=== PATIENT | female | born 1960 | race Caucasian/White ===

== ENCOUNTER 2017-07-25 21:09 | Inpatient (IN) | payer OTHER ==
[~2017-07-25] VITALS: Ht 172.7 cm; Wt 61.0 kg
[2017-07-25 21:14] VITALS: BP 127/59; PULSE 140; RESP 18; TEMP 98.1; O2SAT 97
[2017-07-25 21:15] VITALS: RESP 16; O2SAT 96
[2017-07-25] MEDS ORDERED: SODIUM CHLORIDE 0.9% FLUSH 10 ML FLUSH IVF PRN (21:30)
[2017-07-25] MEDS ORDERED: SODIUM CHLORIDE 0.9% FLUSH 10 ML FLUSH IV FLUSH PRN ×3 (21:30→23:00)
--- NOTE | 2017-07-25 21:51 | PD ---
HPI Chief Complaint: Chest Pain Time Seen by Provider: 21:31 Travel History International Travel<30 days: No Contact w/Intl Traveler<30days: No Traveled to known affect area: No History of Present Illness HPI The patient is a 56-year-old female presents to the emergency department for chest pain. This pain started about 1 hour ago while she was laying in bed. The pain is constant, 8/10 on the pain scale, is not radiating, and is described as a "pressure". The patient has also had some shortness of breath, nausea, vomiting, diaphoresis, and dizziness. She took one nitroglycerin when the pain started and reports that the pain got a little better. The patient says that she felt her heart beating very fast, and as the chest pain got worse they called decided to call 911. EMS gave the patient Cardizem in route to the hospital and that brought her heart rate from the 140s into the 80s. When the patient was seen in the room her heart rate was back into the 140s and her chest pain was still present. The patient has a history of atrial fibrillation, brain aneurysm, hypertension, SC, COPD, diabetes, and hyperlipidemia. Modifying Factors: None Associated Signs & Symptoms: Chest pains, shortness of breath, A. fib with RVR Risk Factors: A. fib history History Past Medical History Narrative Medical COPD, hypertension, history of SC, history of stroke on this diabetes mellitus, hyperlipidemia, GERD, atrial fibrillation, brain aneurysm. Past Surgical History Narrative Surgical Umbilical hernia repair 2, appendectomy, brain aneurysm repair Social History Alcohol Use: Yes Tobacco Use: Yes (1 PPD) Allergies-Medications (Allergen,Severity, Reaction): Coded Allergies: GRADY Inhibitors (Verified Allergy, Severe, 07/25/17) Penicillins (Verified Allergy, Severe, 07/25/17) Sulfa (Sulfonamide Antibiotics) (Verified Allergy, Severe, 07/25/17) codeine (Verified Allergy, Severe, 07/25/17) Review of Systems Except as stated in HPI: all other systems reviewed are Neg General / Constitutional: No: Fever, Chills HENT: No: Headaches Cardiovascular: Positive: Chest Pain or Discomfort, Palpitations, Irregular Rhythm Respiratory: Positive: Shortness of Breath, No: Cough Gastrointestinal: Positive: Nausea, Vomiting Genitourinary: No: Urgency Musculoskeletal: No: Edema Skin: No Rash Neurologic: No: Weakness Physical Exam Narrative GENERAL: Well-developed and well-nourished female in mild distress. Awake and oriented 3. SKIN: Warm and dry. HEAD: Normocephalic. EYES: No scleral icterus. No injection or drainage. NECK: Supple, trachea midline. No JVD or lymphadenopathy. CARDIOVASCULAR: Fast and irregularly irregular. Heart rate in the 140s at bedside and irregular. RESPIRATORY: Clear to auscultation bilaterally. No accessory muscle use. GASTROINTESTINAL: Abdomen soft, non-tender, nondistended. MUSCULOSKELETAL: No cyanosis, or edema. Pain not reproducible by palpation on anterior chest wall BACK: Nontender without obvious deformity. No CVA tenderness. NEUROLOGICAL: Awake and alert. Cranial nerves II through XII intact. Motor and sensory grossly within normal limits. Five out of 5 muscle strength in all muscle groups. Normal speech. Data Data Last Documented VS Vital Signs Date Time Temp Pulse Resp B/P (MAP) Pulse Ox O2 Delivery O2 Flow Rate FiO2 07/25/17 22:00 109 87/65 07/25/17 21:14 98.1 18 97 Orders Orders Complete Blood Count With Diff (07/25/17 21:23) Comprehensive Metabolic Panel (07/25/17 21:23) Magnesium (Mg) (07/25/17 21:23) Ckmb (Isoenzyme) Profile (07/25/17 21:23) Troponin I (07/25/17 21:23) Act Partial Throm Time (Ptt) (07/25/17 21:23) Prothrombin Time / Inr (Pt) (07/25/17 21:23) Chest, Single Ap (07/25/17 21:23) Ecg Monitoring (07/25/17 21:23) Iv Access Insert/Monitor (07/25/17 21:23) Oximetry (07/25/17 21:23) Sodium Chloride 0.9% Flush (Ns Flush) (07/25/17 21:30) Diltiazem Inj (Cardizem Inj) (07/25/17 21:30) Sodium Chloride 0.9% Flush (Ns Flush) (07/25/17 21:30) B-Type Natriuretic Peptide (07/25/17 21:32) Sodium Chloride 0.9% Flush (Ns Flush) (07/25/17 21:45) Diltiazem Inj (Cardizem Inj) (07/25/17 22:00) Admit Order (Ed Use Only) (07/25/17 22:51) Labs Laboratory Tests Test 07/25/17 21:35 White Blood Count 11.1 TH/MM3 Red Blood Count 4.24 MIL/MM3 Hemoglobin 12.3 GM/DL Hematocrit 36.2 % Mean Corpuscular Volume 85.4 FL Mean Corpuscular Hemoglobin 29.0 PG Mean Corpuscular Hemoglobin Concent 34.0 % Red Cell Distribution Width 15.1 % Platelet Count 333 TH/MM3 Mean Platelet Volume 7.6 FL Neutrophils (%) (Auto) 51.7 % Lymphocytes (%) (Auto) 38.2 % Monocytes (%) (Auto) 7.0 % Eosinophils (%) (Auto) 2.1 % Basophils (%) (Auto) 1.0 % Neutrophils # (Auto) 5.8 TH/MM3 Lymphocytes # (Auto) 4.2 TH/MM3 Monocytes # (Auto) 0.8 TH/MM3 Eosinophils # (Auto) 0.2 TH/MM3 Basophils # (Auto) 0.1 TH/MM3 CBC Comment DIFF FINAL Differential Comment Prothrombin Time 10.0 SEC Prothromb Time International Ratio 1.0 RATIO Activated Partial Thromboplast Time 24.0 SEC Blood Urea Nitrogen 16 MG/DL Creatinine 0.85 MG/DL Random Glucose 226 MG/DL Total Protein 7.1 GM/DL Albumin 3.8 GM/DL Calcium Level 8.6 MG/DL Magnesium Level 1.7 MG/DL Alkaline Phosphatase 104 U/L Aspartate Amino Transf (AST/SGOT) 28 U/L Alanine Aminotransferase (ALT/SGPT) 23 U/L Total Bilirubin 0.5 MG/DL Sodium Level 135 MEQ/L Potassium Level 3.8 MEQ/L Chloride Level 102 MEQ/L Carbon Dioxide Level 22.4 MEQ/L Anion Gap 11 MEQ/L Estimat Glomerular Filtration Rate 69 ML/MIN Total Creatine Kinase 83 U/L Troponin I LESS THAN 0.02 NG/ML B-Type Natriuretic Peptide 111 PG/ML MDM Medical Decision Making Medical Screen Exam Complete: Yes Emergency Medical Condition: Yes Medical Record Reviewed: Yes Interpretation(s) EKG shows A. fib with RVR at a rate of 140 bpm. No signs of acute ST elevations or depressions. Laboratory Tests Test 07/25/17 21:35 White Blood Count 11.1 TH/MM3 (4.0-11.0) Activated Partial Thromboplast Time 24.0 SEC (24.3-30.1) Random Glucose 226 MG/DL (74-106) Sodium Level 135 MEQ/L (136-145) Estimat Glomerular Filtration Rate 69 ML/MIN (>89) Troponin I LESS THAN 0.02 NG/ML B-Type Natriuretic Peptide 111 PG/ML (0-100) Last 24 hours Impressions Chest X-Ray 07/25/172122 Signed Impressions: Service Date/Time: Tuesday, July 25, 2017 21:30 - CONCLUSION: The lungs are clear. Possible bony injury to the lateral left 7th and 8th ribs. Mauro King MD Differential Diagnosis Dysrhythmias versus ACS versus sepsis versus dehydration versus metabolic issues Narrative Course EKG shows A. fib with RVR, Cardizem given and drip was initiated in the ER with improvement in symptoms. Lab work did not show significant metabolic issues and cardiac enzymes are negative. At this point, my plan would be to admit her for further evaluation and treatment. Patient has history of aneurysms in the brain and had her anticoagulant stopped by her primary care doctor in the past because of those aneurysms. At this point, I will be cautious about anticoagulation. Case has been discussed with Dr. Longoria for admission. Diagnosis Primary Impression: Atrial fibrillation with RVR Admitting Information Admitting Physician Requests: Admit Bertram Morris MD Jul 25, 2017 21:51
[2017-07-25 21:54] LABS: AUTOMATED NEUTROPHIL # 5.8 TH/MM3 (1.8-7.7); BASOPHIL # 0.1 TH/MM3 (0-0.2); EOSINOPHIL # 0.2 TH/MM3 (0-0.4); EOSINOPHIL % 2.1 % (0.0-4.0); HEMATOCRIT 36.2 % (35.0-46.0); HEMOGLOBIN 12.3 GM/DL (11.6-15.3); LYMPH % 38.2 % (9.0-44.0); LYMPHOCYTE # 4.2 TH/MM3 (1.0-4.8); MEAN CELL VOLUME 85.4 FL (80.0-100.0); MEAN PLATELET VOLUME 7.6 FL (7.0-11.0); MONOCYTE # 0.8 TH/MM3 (0-0.9); NEUT % 51.7 % (16.0-70.0); PLATELET COUNT 333 TH/MM3 (150-450); RED BLOOD COUNT 4.24 MIL/MM3 (4.00-5.30); RED CELL DISTRIBUTION WIDTH 15.1 % (11.6-17.2); WHITE BLOOD COUNT 11.1 TH/MM3 (4.0-11.0)
[2017-07-25] MEDS: DILTIAZEM INJ 125 MG in SODIUM CHLORIDE 0.9% INJ 100 ML IV PRN (22:00)
[2017-07-25] MEDS ORDERED: DILTIAZEM HCL 50 MG/10 ML VIAL IV PUSH ONE (22:00)
[2017-07-25 22:06] LABS: ALBUMIN 3.8 GM/DL (3.4-5.0); ALT (GPT) 23 U/L (10-53); AST (GOT) 28 U/L (15-37); BICARBONATE 22.4 MEQ/L (21.0-32.0); BLOOD UREA NITROGEN 16 MG/DL (7-18); CALCIUM 8.6 MG/DL (8.5-10.1); CHLORIDE 102 MEQ/L (98-107); CREATININE 0.85 MG/DL (0.50-1.00); GLOMERULAR FILTRATION RATE 69 ML/MIN (>89); GLUCOSE,RANDOM 226 MG/DL (74-106); MAGNESIUM 1.7 MG/DL (1.5-2.5); SODIUM (NA) 135 MEQ/L (136-145)
--- NOTE | 2017-07-25 22:06 | RADRPT ---
EXAM DATE/TIME: 07/25/2017 21:30 [facility] COMPARISON: No previous studies available for comparison. INDICATIONS : Chest pain and shortness of breath. MEDICAL HISTORY : Emphysema. SURGICAL HISTORY : None. ENCOUNTER: Initial ACUITY: 1 day PAIN SCORE: 4/10 LOCATION: Bilateral chest FINDINGS: A single view of the chest demonstrates the lungs to be symmetrically aerated without evidence of mas s, infiltrate or effusion. No evidence of pneumothorax. The cardiomediastinal contours are unremarka ble. There is mild focal soft tissue about the posterolateral left 7th and 8th rib without discernib le fracture lucency. CONCLUSION: The lungs are clear. Possible bony injury to the lateral left 7th and 8th ribs. Mauro King MD on July 25, 2017 at 22:03 Board Certified Radiologist. This report was verified electronically.
[2017-07-25 22:10] LABS: ALKALINE PHOSPHATASE 104 U/L (45-117); TOTAL BILIRUBIN ADULT 0.5 MG/DL (0.2-1.0); TOTAL PROTEIN 7.1 GM/DL (6.4-8.2); TROPONIN I LESS THAN 0.02 NG/ML (0.02-0.05)
[2017-07-25 22:30] VITALS: BP 108/62; PULSE 96; RESP 18; O2SAT 97
[2017-07-25 23:00] VITALS: BP 99/58; PULSE 109; RESP 18; O2SAT 96
[2017-07-25] MEDS ORDERED: ACETAMINOPHEN 325 MG TAB PO PRN (23:00)
[2017-07-25] MEDS ORDERED: MAGNESIUM HYDROXIDE SUSP 30 ML CUP PO PRN (23:00)
[2017-07-25] MEDS ORDERED: ONDANSETRON HCL 4 MG/2 ML VIAL IVP PRN (23:00)
[2017-07-25] MEDS ORDERED: LACTULOSE SYRUP 20 GM/30 ML CUP PO PRN (23:00)
[2017-07-25] MEDS ORDERED: BISACODYL 10 MG SUPP RECTAL PRN (23:00)
[2017-07-25] MEDS ORDERED: MORPHINE SULFATE 2 MG/ML INJ IV PUSH PRN (23:00)
[2017-07-25] MEDS ORDERED: SENNOSIDES 8.6 MG TAB PO PRN (23:00)
--- NOTE | 2017-07-25 23:01 | HHI.HP ---
HPI [facility] Primary Care Physician Unknown Admission Diagnosis A. fib with RVR Diagnoses: (1) Atrial fibrillation with RVR Diagnosis: Principal (2) Chest pain Diagnosis: Principal (3) Leukocytosis Diagnosis: Principal (4) DM (diabetes mellitus) Diagnosis: Principal (5) Tobacco abuse Diagnosis: Principal Travel History International Travel<30 Days: No Contact w/Intl Traveler <30 Da: No Traveled to Known Affected Are: No History of Present Illness This is a 56-year-old female with a PMH of HTN, CAD, CVA, COPD, DM, Intracranial Aneurysm s/p Coil x2, Stent x1, A. fib and Tobacco Abuse who was brought to the ER by EMS secondary to complaints of chest pain and palpitations starting earlier tonight. States chest pain is substernal, constant, 8-9/10, non-radiating, worse w/ deep breath/palpitations. Pt found to be in A-fib w/ RVR by EMS, HR 140's, s/p Cardizem w/ HR 80's. Reports previous h/o of A. fib however "not taking anything", does not follow w/ Cardiology. On arrival, BP 127/59, HR 140, O2 sat 97% on RA, Afebrile. WBC 11.1. Chemistry unremarkable was of her GFR 69. BS 226. Troponin negative. INR 1.0. CXR with no acute findings, possible bony injury to lateral left seventh and eighth ribs. Denies trauma. S/p additional Cardizem IV in ER, currently on Cardizem gtt. Review of Systems Except as stated in HPI: all other systems reviewed are Neg ROS: 14 point review of systems otherwise negative. Past Family Social History Past Medical History PMH: HTN, CAD, CVA, COPD, DM, Intracranial Aneurysm s/p Coil x2, Stent x1, A. fib and Tobacco Abuse Past Surgical History PAST SURGICAL HISTORY: Umbilical Hernia Repair, Appendectomy, [employer]GAL [employer]IST[employer] Aneurysm Coil x2, Stent x1 Allergies: Coded Allergies: GRADY Inhibitors (Verified Allergy, Severe, 07/25/17) Penicillins (Verified Allergy, Severe, 07/25/17) Sulfa (Sulfonamide Antibiotics) (Verified Allergy, Severe, 07/25/17) codeine (Verified Allergy, Severe, 07/25/17) Family History PAST FAMILY HISTORY: Reviewed. No h/o DM or CAD Social History PAST SOCIAL HISTORY: Positive for alcohol. Smokes 1ppd. Negative for drugs. Physical Exam Vital Signs Vital Signs Date Time Temp Pulse Resp B/P (MAP) Pulse Ox O2 Delivery O2 Flow Rate FiO2 07/25/17 23:00 109 18 99/58 (72) 96 Room Air 07/25/17 22:00 109 87/65 07/25/17 21:15 16 96 Room Air 07/25/17 21:14 98.1 140 18 127/59 (81) 97 Physical Exam PE: GENERAL: Middle-aged female in no acute distress, appears much older than stated age. Daughter at bedside HEENT: PERRLA, EOMI. No scleral icterus or conjunctival pallor. No lid lag or facial droop. CARDIOVASCULAR: Irregularly irregular, in A. fib, HR 120's. No obvious murmurs to auscultation. No chest tenderness to palpation. RESPIRATORY: No obvious rhonchi or wheezing. Clear to auscultation. Breath sounds equal bilaterally. GASTROINTESTINAL: Abdomen soft, non-tender, nondistended. BS normal. MUSCULOSKELETAL: Extremities without clubbing, cyanosis, or edema. No obvious deformities. NEUROLOGICAL: Awake, alert and oriented x4. No focal neurologic deficits. Moving both upper and lower extremities spontaneously. Laboratory Laboratory Tests Test 07/25/17 21:35 White Blood Count 11.1 Red Blood Count 4.24 Hemoglobin 12.3 Hematocrit 36.2 Mean Corpuscular Volume 85.4 Mean Corpuscular Hemoglobin 29.0 Mean Corpuscular Hemoglobin Concent 34.0 Red Cell Distribution Width 15.1 Platelet Count 333 Mean Platelet Volume 7.6 Neutrophils (%) (Auto) 51.7 Lymphocytes (%) (Auto) 38.2 Monocytes (%) (Auto) 7.0 Eosinophils (%) (Auto) 2.1 Basophils (%) (Auto) 1.0 Neutrophils # (Auto) 5.8 Lymphocytes # (Auto) 4.2 Monocytes # (Auto) 0.8 Eosinophils # (Auto) 0.2 Basophils # (Auto) 0.1 CBC Comment DIFF FINAL Differential Comment Prothrombin Time 10.0 Prothromb Time International Ratio 1.0 Activated Partial Thromboplast Time 24.0 Blood Urea Nitrogen 16 Creatinine 0.85 Random Glucose 226 Total Protein 7.1 Albumin 3.8 Calcium Level 8.6 Magnesium Level 1.7 Alkaline Phosphatase 104 Aspartate Amino Transf (AST/SGOT) 28 Alanine Aminotransferase (ALT/SGPT) 23 Total Bilirubin 0.5 Sodium Level 135 Potassium Level 3.8 Chloride Level 102 Carbon Dioxide Level 22.4 Anion Gap 11 Estimat Glomerular Filtration Rate 69 Total Creatine Kinase 83 Troponin I LESS THAN 0.02 B-Type Natriuretic Peptide 111 Result Diagram: 07/25/17213407/25/172134 Caprini VTE Risk Assessment Caprini VTE Risk Assessment: Mod/High Risk (score >= 2) Caprini Risk Assessment Model Point Value = 1 Point Value = 2 Point Value = 3 Point Value = 5 Age 41-60 Minor surgery BMI > 25 kg/m2 Swollen legs Varicose veins or History of unexplained or recurrent spontaneous Oral contraceptives or hormone replacement Sepsis (< 1 month) Serious lung disease, including pneumonia (< 1 month) Abnormal pulmonary function Acute myocardial infarction Congestive heart failure (< 1 month) History of inflammatory bowel disease Medical patient at bed rest Age 61-74 Arthroscopic surgery Major open surgery (> 45 min) Laparoscopic surgery (> 45 min) Malignancy Confined to bed (> 72 hours) Immobilizing plaster cast Central venous access Age >= 75 History of VTE Family history of VTE Factor V Leiden Prothrombin [id number] Lupus anticoagulant Anticardiolipin antibodies Elevated serum homocysteine Heparin-induced thrombocytopenia Other congenital or acquired thrombophilia Stroke (< 1 month) Elective arthroplasty Hip, pelvis, or leg fracture Acute spinal cord injury (< 1 month) Prophylaxis Regimen Total Risk Factor Score Risk Level Prophylaxis Regimen 0-1 Low Early ambulation 2 Moderate Order ONE of the following: *Sequential Compression Device (SCD) *Heparin 5000 units SQ BID 3-4 Higher Order ONE of the following medications: *Heparin 5000 units SQ TID *Enoxaparin/Lovenox 40 mg SQ daily (WT < 150 kg, CrCl > 30 mL/min) *Enoxaparin/Lovenox 30 mg SQ daily (WT < 150 kg, CrCl > 10-29 mL/min) *Enoxaparin/Lovenox 30 mg SQ BID (WT < 150 kg, CrCl > 30 mL/min) AND/OR *Sequential Compression Device (SCD) 5 or more Highest Order ONE of the following medications: *Heparin 5000 units SQ TID (Preferred with Epidurals) *Enoxaparin/Lovenox 40 mg SQ daily (WT < 150 kg, CrCl > 30 mL/min) *Enoxaparin/Lovenox 30 mg SQ daily (WT < 150 kg, CrCl > 10-29 mL/min) *Enoxaparin/Lovenox 30 mg SQ BID (WT < 150 kg, CrCl > 30 mL/min) AND *Sequential Compression Device (SCD) Assessment and Plan Problem List: (1) Atrial fibrillation with RVR ICD Code: I48.91 - Unspecified atrial fibrillation Status: Acute (2) Chest pain ICD Code: R07.9 - Chest pain, unspecified (3) Leukocytosis ICD Code: D72.829 - Elevated white blood cell count, unspecified (4) DM (diabetes mellitus) ICD Code: E11.9 - Type 2 diabetes mellitus without complications (5) Tobacco abuse ICD Code: Z72.0 - Tobacco use Assessment and Plan A/P: 1. A. fib w/ RVR: h/o A-fib, now w/ RVR, s/p Cardizem x2 w/ persistent tachyarrhythmia, currently on Cardizem gtt. Admit to [facility], continue Cardizem, resume home Metoprolol. H/o Aneurysm s/p Coil/Stent, on ASA at home, will resume w/ ASA. Check Echo to eval for valvular abnormalities/cardiomyopathy. Consult Cardiology for further recommendations. 2. Chest Pain: R/o ACS. H/o CAD. Initial trop negative. Check serial cardiac enzymes to eval for underlying ischemia. Telemetry. Cardio eval as above. 3. Leukocytosis: WBC 11. Afebrile. CXR w/ no acute findings, images reviewed by me. Check repeat labs in am. 4. DM: Hold Metformin for now. Sliding scale w/ Accu-Cheks. 5. Tobacco Abuse; Pt counselled. Ativan prn. No NicoDerm to avoid vasoconstriction. 6. DVT Prophylaxis: SCD/teds. 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 8. Case discussed at length with ER physician, lab/records/imaging reviewed by me. Physician Certification 2 Midnight Certification Type: Admission for Inpatient Services Order for Inpatient Services The services are ordered in accordance with Medicare regulations or non- Medicare payer requirements, as applicable. In the case of services not specified as inpatient-only, they are appropriately provided as inpatient services in accordance with the 2-midnight benchmark. Estimated LOS (days): 2 days is the estimated time the patient will need to remain in the hospital, assuming treatment plan goals are met and no additional complications. Post-Hospital Plan: Not yet determined Linda Longoria MD Jul 25, 2017 23:00
[2017-07-25] MEDS ORDERED: CYCL10TA PO (23:08)
[2017-07-25] MEDS ORDERED: METO1TAB9 PO (23:08)
[2017-07-25] MEDS ORDERED: METF500T PO (23:08)
[2017-07-25] MEDS ORDERED: ALBUAER3 INH (23:08)
[2017-07-25] MEDS ORDERED: ZOFR4TAB PO (23:08)
[2017-07-25] MEDS ORDERED: HYDR-3801 PO (23:08)
[2017-07-25] MEDS ORDERED: ATOR40TA16 PO (23:08)
[2017-07-25] MEDS ORDERED: METH750T PO (23:08)
[2017-07-25] MEDS ORDERED: ASPI-183 PO (23:08)
[2017-07-25] MEDS ORDERED: PANT40TA3 PO (23:08)
[2017-07-25] MEDS ORDERED: NITR0.4S SL (23:08)
[2017-07-26] VITALS (14 sets, daily range): BP systolic 103–148; BP diastolic 55–77; PULSE 47–100; RESP 16–35; TEMP 97.5–98.2; O2SAT 93–97
[2017-07-26] MEDS: MORPHINE SULFATE 2 MG/ML INJ IV PUSH PRN ×2 (01:30→09:22)
[2017-07-26] MEDS: SODIUM CHLOR 0.9% 1000 ML INJ 1,000 ML IV SCH (02:51)
[2017-07-26 02:55] LABS: AUTOMATED NEUTROPHIL # 4.3 TH/MM3 (1.8-7.7); BASOPHIL # 0.1 TH/MM3 (0-0.2); BASOPHIL % 0.9 % (0.0-2.0); EOSINOPHIL # 0.2 TH/MM3 (0-0.4); EOSINOPHIL % 1.8 % (0.0-4.0); HEMOGLOBIN 12.2 GM/DL (11.6-15.3); LYMPH % 48.3 % (9.0-44.0); LYMPHOCYTE # 4.8 TH/MM3 (1.0-4.8); MEAN CELL VOLUME 84.8 FL (80.0-100.0); MEAN CORPUSCULAR HEMOGLOBIN 29.5 PG (27.0-34.0); MEAN CORPUSCULAR HGB CONC 34.9 % (32.0-36.0); MEAN PLATELET VOLUME 7.2 FL (7.0-11.0); MONO % 6.4 % (0.0-8.0); MONOCYTE # 0.6 TH/MM3 (0-0.9); NEUT % 42.6 % (16.0-70.0); PLATELET COUNT 338 TH/MM3 (150-450); RED BLOOD COUNT 4.12 MIL/MM3 (4.00-5.30); RED CELL DISTRIBUTION WIDTH 15.2 % (11.6-17.2)
[2017-07-26 03:43] LABS: ALBUMIN 3.6 GM/DL (3.4-5.0); ALKALINE PHOSPHATASE 97 U/L (45-117); ALT (GPT) 22 U/L (10-53); AST (GOT) 23 U/L (15-37); BICARBONATE 24.9 MEQ/L (21.0-32.0); BLOOD UREA NITROGEN 14 MG/DL (7-18); CALCIUM 8.6 MG/DL (8.5-10.1); CHLORIDE 105 MEQ/L (98-107); CHOLESTEROL 148 MG/DL (120-200); CHOLESTEROL/ HDL RATIO 2.67 RATIO; CREATININE 0.66 MG/DL (0.50-1.00); GLOMERULAR FILTRATION RATE 92 ML/MIN (>89); GLUCOSE,RANDOM 111 MG/DL (74-106); HDL CHOLESTEROL 55.3 MG/DL (40.0-60.0); LDL CHOLESTEROL 65 MG/DL (0-99); SODIUM (NA) 137 MEQ/L (136-145); TOTAL BILIRUBIN ADULT 0.5 MG/DL (0.2-1.0); TRIGLYCERIDES 138 MG/DL (42-150); TROPONIN I LESS THAN 0.02 NG/ML (0.02-0.05)
[2017-07-26] MEDS: CHLORHEXIDINE GLUCONATE 2 % 1 PACK (2 CLOTHS)(taper/protocol) TOPICAL SCH (04:00)
[2017-07-26] MEDS ORDERED: CHLORHEXIDINE GLUCONATE 2 % 1 PACK (2 CLOTHS)(extra cloths) TOPICAL PRN (04:00)
[2017-07-26] MEDS ORDERED: PRAVASTATIN SOD 40 MG TAB PO SCH (09:00)
[2017-07-26] MEDS: PANTOPRAZOLE SOD 40 MG DELAYED RELEASE TAB PO SCH (09:06)
[2017-07-26] MEDS: CYCLOBENZAPRINE HCL 10 MG TAB PO SCH ×3 (09:06→18:00)
[2017-07-26] MEDS: DOCUSATE SODIUM 50 MG/SENNA 8.6 MG TAB PO SCH ×2 (09:06→21:44)
[2017-07-26] MEDS: METOPROLOL SUCCINATE 50 MG EXTENDED RELEASE TAB PO SCH ×2 (09:06→21:44)
[2017-07-26] MEDS: ASPIRIN EC 81 MG TABEC PO SCH (09:06)
[2017-07-26] MEDS: SODIUM CHLORIDE 0.9% FLUSH 10 ML FLUSH IV FLUSH SCH ×2 (09:11→21:44)
[2017-07-26] MEDS: DILTIAZEM INJ 125 MG in SODIUM CHLORIDE 0.9% INJ 100 ML IV PRN (09:12)
--- NOTE | 2017-07-26 11:19 | PD.CONS ---
History of Present Illness Service Neurosurgery Consult Requested By M Reason for Consult Medicine service Primary Care Physician Unknown Diagnoses: History of Present Illness 56 yo Hx multiple cerebral aneurysms, DM, COPD, CVA, HTN, A-fib presents to ED with chest pain Past Family Social History Allergies: Coded Allergies: GRADY Inhibitors (Verified Allergy, Severe, 07/25/17) Penicillins (Verified Allergy, Severe, 07/25/17) Sulfa (Sulfonamide Antibiotics) (Verified Allergy, Severe, 07/25/17) codeine (Verified Allergy, Severe, 07/25/17) Physical Exam Vital Signs Vital Signs Date Time Temp Pulse Resp B/P (MAP) Pulse Ox O2 Delivery O2 Flow Rate FiO2 07/26/17 10:00 100 07/26/17 09:12 129 128/64 07/26/17 08:00 86 07/26/17 08:00 97.8 86 25 132/59 (83) 97 07/26/17 06:00 75 07/26/17 04:35 70 07/26/17 04:30 97.5 70 18 148/68 (94) 97 07/26/17 03:55 07/26/17 02:56 87 18 103/77 (86) 97 Nasal Cannula 2.00 07/26/17 01:30 88 18 129/59 (82) 95 Nasal Cannula 2.00 07/26/17 00:35 96 18 110/55 (73) 97 Room Air 07/25/17 23:11 127 112/54 07/25/17 23:00 109 18 99/58 (72) 96 Room Air 07/25/17 22:30 96 18 108/62 (77) 97 Room Air 07/25/17 22:00 109 87/65 07/25/17 21:15 16 96 Room Air 07/25/17 21:14 98.1 140 18 127/59 (81) 97 Physical Exam GENERAL: This is a well-nourished, well-developed patient, in no apparent distress. SKIN: No rashes, ecchymoses or lesions. Cool and dry. HEAD: Atraumatic. Normocephalic. No temporal or scalp tenderness. EYES: Pupils equal round and reactive. Extraocular motions intact. No scleral icterus. No injection or drainage. ENT: Nose without bleeding, purulent drainage or septal hematoma. Throat without erythema, tonsillar hypertrophy or exudate. Uvula midline. Airway patent. NECK: Trachea midline. No JVD or lymphadenopathy. Supple, nontender, no meningeal signs. CARDIOVASCULAR: Regular rate and rhythm without murmurs, gallops, or rubs. RESPIRATORY: Clear to auscultation. Breath sounds equal bilaterally. No wheezes , rales, or rhonchi. GASTROINTESTINAL: Abdomen soft, non-tender, nondistended. No hepato-splenomegaly , or palpable masses. No guarding. MUSCULOSKELETAL: Extremities without clubbing, cyanosis, or edema. No joint tenderness, effusion, or edema noted. No calf tenderness. Negative Homans sign bilaterally. NEUROLOGICAL: Awake and alert. Cranial nerves II through XII intact. Motor and sensory grossly within normal limits. Five out of 5 muscle strength in all muscle groups. Normal speech. Laboratory Laboratory Tests Test 07/25/17 21:35 07/26/17 02:36 07/26/17 03:45 White Blood Count 11.1 10.0 Red Blood Count 4.24 4.12 Hemoglobin 12.3 12.2 Hematocrit 36.2 35.0 Mean Corpuscular Volume 85.4 84.8 Mean Corpuscular Hemoglobin 29.0 29.5 Mean Corpuscular Hemoglobin Concent 34.0 34.9 Red Cell Distribution Width 15.1 15.2 Platelet Count 333 338 Mean Platelet Volume 7.6 7.2 Neutrophils (%) (Auto) 51.7 42.6 Lymphocytes (%) (Auto) 38.2 48.3 Monocytes (%) (Auto) 7.0 6.4 Eosinophils (%) (Auto) 2.1 1.8 Basophils (%) (Auto) 1.0 0.9 Neutrophils # (Auto) 5.8 4.3 Lymphocytes # (Auto) 4.2 4.8 Monocytes # (Auto) 0.8 0.6 Eosinophils # (Auto) 0.2 0.2 Basophils # (Auto) 0.1 0.1 CBC Comment DIFF FINAL DIFF FINAL Differential Comment Prothrombin Time 10.0 Prothromb Time International Ratio 1.0 Activated Partial Thromboplast Time 24.0 Blood Urea Nitrogen 16 14 Creatinine 0.85 0.66 Random Glucose 226 111 Total Protein 7.1 7.0 Albumin 3.8 3.6 Calcium Level 8.6 8.6 Magnesium Level 1.7 Alkaline Phosphatase 104 97 Aspartate Amino Transf (AST/SGOT) 28 23 Alanine Aminotransferase (ALT/SGPT) 23 22 Total Bilirubin 0.5 0.5 Sodium Level 135 137 Potassium Level 3.8 3.9 Chloride Level 102 105 Carbon Dioxide Level 22.4 24.9 Anion Gap 11 7 Estimat Glomerular Filtration Rate 69 92 Total Creatine Kinase 83 Troponin I LESS THAN 0.02 LESS THAN 0.02 B-Type Natriuretic Peptide 111 Triglycerides Level 138 Cholesterol Level 148 LDL Cholesterol 65 HDL Cholesterol 55.3 Cholesterol/HDL Ratio 2.67 Thyroid Stimulating Hormone 3rd Gen 2.050 Nasal Screen MRSA (PCR) MRSA DETECTED Result Diagram: 07/26/17 0236 07/26/17 0236 Assessment and Plan Assessment and Plan request for clearancefor anticoagulation in patient with Hx multile cerebral aneurysms, S/P coil Rec: May proceed with anticogulation. A CTA Brain will be obtained to determine current status of any cerebrovascular disease , however this this should not delay initiation of anticoagulation if needed on an urgent basis for cardiac reasons Esa Montgomery MD Jul 26, 2017 11:19
[2017-07-26 12:27] LABS: HEMOGLOBIN A1C 6.8 % (4.3-6.0)
[2017-07-26] MEDS: DILTIAZEM HCL 60 MG TAB PO SCH ×3 (12:43→21:00)
--- NOTE | 2017-07-26 14:06 | MB ---
cc: Ag Lopez MD DATE OF CONSULT: 07/26/2017 REASON FOR CONSULTATION: Atrial fibrillation and chest pain. HISTORY OF PRESENT ILLNESS: The patient is a pleasant 56-year-old woman with a history of paroxysmal atrial fibrillation, chest pain, and apparently several brain aneurysms, which have been coiled. The patient is quite a vague historian and all of her procedures were done in [place], so our records are currently unavailable. She presented with chest discomfort and was found to be in rapid atrial fibrillation. She has been started on a Cardizem drip and says she feels somewhat better but still has some vague left lateral chest discomfort. No current shortness of breath. No lightheadedness, dizziness or syncope. PAST MEDICAL HISTORY: 1. Paroxysmal atrial fibrillation (the patient says that she was previously on anticoagulation but this had been discontinued, unclear why). 2. Questionable CVA. 3. Questionable TX (the patient seems to describe an inferior infarction seen on nuclear stress test, but no known history of definitive TX). 4. Ongoing tobacco abuse (counseled against at length). 5. Hypertension. ALLERGIES: GRADY INHIBITORS, PENICILLIN, SULFA, CODEINE. CURRENT MEDICATIONS: Aspirin 81 mg daily, Toprol XL 50 mg b.i.d., Protonix 40 mg daily. PHYSICAL EXAMINATION: VITAL SIGNS: Afebrile, heart rate 130, respiratory rate 18, BP 150/70 down to 120/64, satting 97 on 2 liters. GENERAL: Pleasant woman who appears quite a bit older than her stated age. NECK: No JVD. LUNGS: Decreased breath sounds in all george. CARDIOVASCULAR: Irregularly irregular rhythm with a mildly rapid rate. No significant murmurs appreciated. ABDOMEN: Benign. EXTREMITIES: No edema. LABORATORY DATA: Sodium 137, potassium 3.9, chloride 105, bicarb 24.9, BUN 14, creatinine 0.66, glucose 111. INR is 1.0. White count 10.0, hematocrit 35.0, platelets 338. EKG shows a rapid atrial fibrillation with ST depressions anterolaterally. Rate is about 133. IMPRESSION: 1. Atrial fibrillation. The patient has a CHADS-VASc score of at least 2 for gender and hypertension and there is some question of whether she has had a stroke or myocardial infarction in the past so her risk could be higher. I do think she requires full anticoagulation but this is complicated as the patient tells me she had previously been anticoagulation but her neurosurgeon in [place] discontinued this. We will ask the assistance of neurosurgery to help determine whether she can or cannot be placed on anticoagulation at this time for stroke protection. Regarding her rate control, she is still tachycardic. I have added oral Cardizem and the nurse will dry to wean down her Cardizem drip as she tolerates. 2. Chest pain. The patient's chest pain is fairly vague, but her echocardiogram does show some ischemic changes which may be rate related but she certainly has risk factors for coronary disease. I will have her undergo a nuclear stress. Further recommendations based on her clinical course. Thank you again for the opportunity to participate in this patient's care. MD ANNETTE Freed/PANHCO , 09:56 AM , 02:05 PM
--- NOTE | 2017-07-26 14:14 | HHI.PR ---
Subjective Remarks telemetry- a fib- rate controlled no complains of chest pains or shortness of breath smoker Objective Vitals Vital Signs Date Time Temp Pulse Resp B/P (MAP) Pulse Ox O2 Delivery O2 Flow Rate FiO2 07/26/17 10:00 100 07/26/17 09:12 129 128/64 07/26/17 08:00 86 07/26/17 08:00 97.8 86 25 132/59 (83) 97 07/26/17 06:00 75 07/26/17 04:35 70 07/26/17 04:30 97.5 70 18 148/68 (94) 97 07/26/17 03:55 07/26/17 02:56 87 18 103/77 (86) 97 Nasal Cannula 2.00 07/26/17 01:30 88 18 129/59 (82) 95 Nasal Cannula 2.00 07/26/17 00:35 96 18 110/55 (73) 97 Room Air 07/25/17 23:11 127 112/54 07/25/17 23:00 109 18 99/58 (72) 96 Room Air 07/25/17 22:30 96 18 108/62 (77) 97 Room Air 07/25/17 22:00 109 87/65 07/25/17 21:15 16 96 Room Air 07/25/17 21:14 98.1 140 18 127/59 (81) 97 I/O 07/25/17 07/25/17 07/25/17 07/26/17 07/26/17 07/26/17 07:00 15:00 23:00 07:00 15:00 23:00 Intake Total 150 ml Output Total 350 ml Balance -200 ml Intake Oral 150 ml Output Urine Total 350 ml Result Diagram: 07/26/176 07/26/176 Imaging Last Impressions Chest X-Ray 07/25/172122 Signed Impressions: Service Date/Time: Tuesday, July 25, 2017 21:30 - CONCLUSION: The lungs are clear. Possible bony injury to the lateral left 7th and 8th ribs. Mauro King MD Objective Remarks awake and alert, oriented x 3 anciteric no nuchal rigidity lungs- no rales, no wheezes irregularly irregular rhythm abdomen soft, nontender extremities no edema neuro exam- unremarkable A/P Problem List: (1) Atrial fibrillation with RVR ICD Code: I48.91 - Unspecified atrial fibrillation Status: Acute (2) Chest pain ICD Code: R07.9 - Chest pain, unspecified (3) Leukocytosis ICD Code: D72.829 - Elevated white blood cell count, unspecified (4) DM (diabetes mellitus) ICD Code: E11.9 - Type 2 diabetes mellitus without complications (5) Tobacco abuse ICD Code: Z72.0 - Tobacco use Assessment and Plan 56 years old female A. fib w/ RVR: h/o A-fib, History of CAD. denies any hsitory of CVA H/o Aneurysm s/p Coil/Stent, on Cardizme drip 5 mg/hr- transition to po cardizem qid continue on Metoprolol. statis, ASA. Check Echo to eval for valvular abnormalities/cardiomyopathy. Eliquis bid Dr. Lopez ff going for myocardial perfusion study Leukocytosis: WBC 11. Afebrile. CXR w/ no acute findings, images reviewed by me. Check repeat labs in am. DM: Hold Metformin for now. Sliding scale w/ Accu-Cheks. COPD. still continues to smoke- counselled restart her inhalers hsitory fo GERD. continue PPI History of cerebral aneurysm S/P coiling. 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 Oneyda Chaudhry MD Jul 26, 2017 14:14
[2017-07-26] MEDS: ALBUTEROL SULFATE 90 MCG/ACT HFA 8 GM INHALER INH SCH (18:14)
[2017-07-26] MEDS: APIXABAN 5 MG TABLET PO SCH (21:00)
[2017-07-26] MEDS ORDERED: ATORVASTATIN 40 MG TAB PO SCH (21:00)
[2017-07-27] VITALS (9 sets, daily range): BP systolic 113–171; BP diastolic 54–79; PULSE 50–65; RESP 16–24; TEMP 97.5–98.2; O2SAT 93–99
--- NOTE | 2017-07-27 00:06 | EKG ---
Date Performed: 07/25/2017 Time Performed: 21:19:21 PTAGE: 56 years EKG: ATRIAL FIBRILLATION WITH RAPID VENTRICULAR RESPONSE VOLTAGE CRITERIA FOR LVH ST DEPRESSION, CONSIDER SUBENDOCARDIAL INJURY ABNORMAL ECG NO PREVIOUS TRACING DOCTOR: Efraín Chery Interpretating Date/Time 07/27/2017 00:05:59
[2017-07-27] MEDS ORDERED: IOHEXOL 350 MG/ML 10 ML VIAL (for RAD DIAG) IVCONTRAST ONE (00:32)
[2017-07-27] MEDS: ALBUTEROL SULFATE 90 MCG/ACT HFA 8 GM INHALER INH SCH ×3 (00:54→12:47)
--- NOTE | 2017-07-27 00:55 | RADRPT ---
EXAM DATE/TIME: 07/27/2017 00:23 [facility] COMPARISON: CTA BRAIN W 3D RECON, July 27, 2017, 0:25. INDICATIONS : Aneurysm. S/P coil. RADIATION DOSE: 9.52 CTDIvol (mGy) multiple studies MEDICAL HISTORY : Cerebrovascular disease. Aneurysm, intracranial. Diabetes mellitus type 2.Hypertension. SURGICAL HISTORY : Hernia repairs. Aneurysm coil. ENCOUNTER: Initial ACUITY: 2 days PAIN SCALE: 7/10 LOCATION: cranial TECHNIQUE: Multiple contiguous axial images were obtained of the head. Using automated exposure control and adj ustment of the mA and/or kV according to patient size, radiation dose was kept as low as reasonably a chievable to obtain optimal diagnostic quality images. DICOM format image data is available electro nically for review and comparison. FINDINGS: Coil with associated metallic streak artifact present in the basal cistern. I believe this is in the region of the basilar tip. There is a stent in the basilar artery. No perceptible aneurysm or bleed. No mass, mass effect or midline shift. There is mild, chronic appearing decreased attenuation in the periventricular white matter. No eviden ce of an acute ischemic event. CONCLUSION: No acute complication demonstrated post aneurysm coiling. No perceptible hemorrhage. Mild chronic whi te matter changes. Kenneth Pearce MD on July 27, 2017 at 0:51 Board Certified Radiologist. This report was verified electronically.
--- NOTE | 2017-07-27 00:59 | RADRPT ---
EXAM DATE/TIME: 07/27/2017 00:25 [facility] COMPARISON: No previous studies available for comparison. INDICATIONS : Aneurysm. S/P coil. IV CONTRAST: 80 cc Omnipaque 350 (iohexol) IV ; Cumulative dose for multiple exams. RADIATION DOSE: 9.52 CTDIvol (mGy) ; Combined studies MEDICAL HISTORY : Cerebrovascular disease. Aneurysm, intracranial. Diabetes mellitus type 2.Hypertension. Uterine canc er. SURGICAL HISTORY : Hernia surgeries. Aneurysm coil. ENCOUNTER: Initial ACUITY: 2 days PAIN SCALE: 7/10 LOCATION: cranial TECHNIQUE: Volumetric scanning was performed using a multi-row detector CT scanner. The data was post processed with a variety of visualization algorithms including full volume maximum intensity projection, multi -planar sliding thin slab reformation, curved planar reformation, and surface rendering techniques. Using automated exposure control and adjustment of the mA and/or kV according to patient size, radiat ion dose was kept as low as reasonably achievable to obtain optimal diagnostic quality images. DICO M format image data is available electronically for review and comparison. FINDINGS: Large aneurysm coil seen in the region of the basilar tip. There is a stent of the basilar artery. Th ere is metallic streak artifact. I don't see a definite residual aneurysm. Mild luminal irregularity and mild narrowing of the proximal right and left anterior cerebral arterie s CONCLUSION: 1. Aneurysm coiling in the region of the basilar tip without a definite residual aneurysm. No additio nal aneurysms are demonstrated. 2. Mild spasm and/or intracranial atherosclerotic disease involving the anterior cerebral arteries. N o high-grade narrowing seen of the intracranial arteries. Kenneth Pearce MD on July 27, 2017 at 0:54 Board Certified Radiologist. This report was verified electronically.
--- NOTE | 2017-07-27 01:20 | RADRPT ---
EXAM DATE/TIME: 07/27/2017 00:25 [facility] COMPARISON: No previous studies available for comparison. INDICATIONS : Aneurysm. S/P coil. IV CONTRAST: 80 cc Omnipaque 350 (iohexol) IV ; Cumulative dose for multiple exams. RADIATION DOSE: 9.52 CTDIvol (mGy) ; Combined studies MEDICAL HISTORY : Cardiovascular disease. Aneurysm, intracranial. Diabetes mellitus type 2.Hypertension. Uterine cance r. SURGICAL HISTORY : Hernia surgeries. Aneurysm coil. ENCOUNTER: Initial ACUITY: 2 days PAIN SCALE: 0/10 LOCATION: neck Elevated flow velocities and ICA/CCA ratios have been found to correlate with increased degrees of vessel stenosis, calculated as percentage of diameter relative to a normal segment of distal ICA/CCA. TECHNIQUE: Volumetric scanning was performed using a multirow detector CT scanner. The data was post processed with a variety of visualization algorithms including full-volume maximum intensity projection, multip lanar sliding thin-slab reformation, curved-planar reformation, and surface-rendering techniques. Us ing automated exposure control and adjustment of the mA and/or kV according to patient size, radiatio n dose was kept as low as reasonably achievable to obtain optimal diagnostic quality images. DICOM f ormat image data is available electronically for review and comparison. FINDINGS: AORTIC ARCH: There is a three-vessel origin of the great vessels from the aorta. No evidence of ostial narrowing. RIGHT CAROTID: 2.3 cm long mild atherosclerotic plaque seen in the mid common carotid artery causing 30% or less saw rowing. There is bulky plaque of the bulb and proximal internal carotid artery with approximately 50% stenosis. LEFT CAROTID: There is moderate calcified atherosclerotic plaque at the bulb and proximal internal carotid artery c ausing mild narrowing. VERTEBRALS: The vertebral arteries have a symmetric diameter. No stenotic lesions are seen. CONCLUSION: Right greater than left carotid bifurcation atherosclerotic plaque with approximately 50% narrowing o f the right proximal ICA and 30% narrowing of the proximal left ICA. Also some mild narrowing of the right common carotid artery. No hemodynamically significant stenosis is demonstrated. Kenneth Pearce MD on July 27, 2017 at 1:15 Board Certified Radiologist. This report was verified electronically.
[2017-07-27] MEDS: CHLORHEXIDINE GLUCONATE 2 % 1 PACK (2 CLOTHS)(taper/protocol) TOPICAL SCH (04:00)
[2017-07-27] MEDS: SODIUM CHLOR 0.9% 1000 ML INJ 1,000 ML IV SCH ×2 (04:00→14:57)
[2017-07-27] MEDS: CYCLOBENZAPRINE HCL 10 MG TAB PO SCH ×2 (09:35→12:47)
[2017-07-27] MEDS: ASPIRIN EC 81 MG TABEC PO SCH (09:35)
[2017-07-27] MEDS: SODIUM CHLORIDE 0.9% FLUSH 10 ML FLUSH IV FLUSH SCH (09:35)
[2017-07-27] MEDS: PANTOPRAZOLE SOD 40 MG DELAYED RELEASE TAB PO SCH (09:35)
[2017-07-27] MEDS: DOCUSATE SODIUM 50 MG/SENNA 8.6 MG TAB PO SCH (09:35)
[2017-07-27] MEDS: APIXABAN 5 MG TABLET PO SCH (09:36)
[2017-07-27] MEDS: DILTIAZEM HCL 60 MG TAB PO SCH ×2 (09:51→12:48)
[2017-07-27] MEDS ORDERED: REGADENOSON INJ 0.4 MG/5 ML SYR ONE (10:41)
--- NOTE | 2017-07-27 12:16 | RADRPT ---
EXAM DATE/TIME: 07/26/2017 14:33 [facility] COMPARISON: No previous studies available for comparison. INDICATIONS : Chest pain. DOSE: 30.1 mCi Tc99m Myoview at stress. 30.2 mCi Tc99m Myoview at rest. 0.4 mg Lexiscan STRESS SYMPTOMS: Chest pains and short of breath. EJECTION FRACTION: 52% MEDICAL HISTORY : Hypertension. Myocardial infarction. Gastroesophageal reflux disease. SURGICAL HISTORY : Appendectomy. Umbilical hernia repair. brain aneurysm repair. ENCOUNTER: Initial ACUITY: 2 days PAIN SCALE: 8/10 LOCATION: chest TECHNIQUE: The patient underwent pharmacologic stress with infusion of prescribed dose. Continuous ECG tracing was monitored during stress. Gated SPECT imaging was performed after stress and conventional SPECT i maging was performed at rest. The examination was performed on a SPECT/CT scanner, both attenuation and non-corrected datasets were reviewed. FINDINGS: DISTRIBUTION: The maximum perfused segment at stress is in the anterior wall. PERFUSION STUDY: The pattern of perfusion at stress is within normal limits. GATED STUDY: There is intact wall motion and thickening without hypokinetic or dyskinetic segments. CONCLUSION: 1. No significant reversibility to suggest ischemia. There is some increased gastric activity which d oes obscure the findings. 2. Ejection fraction is within normal limits at 52%. RISK CATEGORY: Low (<1% Annual Mortality Rate) [place] De Jesus MD on July 27, 2017 at 12:10 Board Certified Radiologist. This report was verified electronically.
--- NOTE | 2017-07-27 14:45 | HHI.PR ---
Subjective Remarks telemetry- in SR up and ambulating- steady no chst pains or shortness of breath Objective Vitals Vital Signs Date Time Temp Pulse Resp B/P (MAP) Pulse Ox O2 Delivery O2 Flow Rate FiO2 07/27/17 12:00 97.7 65 24 167/79 (108) 94 07/27/17 12:00 65 07/27/17 10:00 65 07/27/17 08:00 53 07/27/17 08:00 97.5 53 16 171/78 (109) 07/27/17 06:00 59 07/27/17 04:00 56 07/27/17 04:00 97.6 56 24 140/70 (93) 93 07/27/17 02:00 53 07/27/17 00:00 50 07/27/17 00:00 97.9 50 16 113/54 (73) 07/26/17 22:00 56 07/26/17 20:00 97.7 49 16 103/55 (71) 95 07/26/17 20:00 49 07/26/17 18:00 47 07/26/17 18:00 97.5 47 16 114/55 (74) 07/26/17 16:00 74 I/O 07/26/17 07/26/17 07/26/17 07/27/17 07/27/17 07/27/17 07:00 15:00 23:00 07:00 15:00 23:00 Intake Total 150 ml 600 ml 1240 ml 300 ml Output Total 350 ml 500 ml 650 ml 550 ml Balance -200 ml 100 ml 590 ml -250 ml Intake Oral 150 ml 600 ml 100 ml 300 ml IV Total 1140 ml Output Urine Total 350 ml 500 ml 650 ml 550 ml # Bowel Movements 0 Result Diagram: 07/26/17 0236 07/26/17 0236 Imaging Last Impressions Head CT 07/27/17 0005 Signed Impressions: Service Date/Time: Thursday, July 27, 2017 00:23 - CONCLUSION: No acute complication demonstrated post aneurysm coiling. No perceptible hemorrhage. Mild chronic white matter changes. Kenneth Pearce MD Neck CTA 07/27/17 0000 Signed Impressions: Service Date/Time: Thursday, July 27, 2017 00:25 - CONCLUSION: Right greater than left carotid bifurcation atherosclerotic plaque with approximately 50%% narrowing of the right proximal ICA and 30%% narrowing of the proximal left ICA. Also some mild narrowing of the right common carotid artery. No hemodynamically significant stenosis is demonstrated. Kenneth Pearce MD Head CTA 07/27/17 0000 Signed Impressions: Service Date/Time: Thursday, July 27, 2017 00:25 - CONCLUSION: 1. Aneurysm coiling in the region of the basilar tip without a definite residual aneurysm. No additional aneurysms are demonstrated. 2. Mild spasm and/or intracranial atherosclerotic disease involving the anterior cerebral arteries. No high- grade narrowing seen of the intracranial arteries. Kenneth Pearce MD Myocardial Perfusion Scan Nuc Med 07/26/17 0000 Signed Impressions: Service Date/Time: Wednesday, July 26, 2017 14:33 - CONCLUSION: 1. No significant reversibility to suggest ischemia. There is some increased gastric activity which does obscure the findings. 2. Ejection fraction is within normal limits at 52%%. RISK CATEGORY: Low (<1%% Annual Mortality Rate) [place] De Jesus MD Chest X-Ray 07/25/172122 Signed Impressions: Service Date/Time: Tuesday, July 25, 2017 21:30 - CONCLUSION: The lungs are clear. Possible bony injury to the lateral left 7th and 8th ribs. Mauro King MD Objective Remarks awake and alert, oriented x 3 anicteric no nuchal rigidity lungs- no rales, no wheezes regular rhythm abdomen soft, nontender extremities no edema neuro exam- unremarkable A/P Problem List: (1) Atrial fibrillation with RVR ICD Code: I48.91 - Unspecified atrial fibrillation Status: Acute (2) Chest pain ICD Code: R07.9 - Chest pain, unspecified (3) Leukocytosis ICD Code: D72.829 - Elevated white blood cell count, unspecified (4) DM (diabetes mellitus) ICD Code: E11.9 - Type 2 diabetes mellitus without complications (5) Tobacco abuse ICD Code: Z72.0 - Tobacco use Assessment and Plan 56 years old female Paroxysmal A. fib w/ RVR: h/o A-fib, - now In SR- oernight some cristino- History of CAD. denies any hsitory of CVA H/o Aneurysm s/p Coil/Stent, negative myocardial perfusion study controlled on Cardizem 60 mg continue on Metoprolol bid . statis, ASA. Eliquis bid Dr. Lopez ff good BPs Leukocytosis: WBC 11. Afebrile. CXR w/ no acute findings, DM: Hold Metformin for now x 48 hours- post CTA. Sliding scale w/ Accu-Cheks. COPD. still continues to smoke- counselled again extensively restart her inhalers history y fo GERD. continue PPI History of cerebral aneurysm S/P coiling. 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 DC today CM to assist with meds and DC ff up- needs a PCP- medicaid if creatinine- DC home today- Oneyda Chaudhry MD Jul 27, 2017 14:45
[2017-07-27] MEDS ORDERED: MUPIROCIN 2% OINT 1 APPLIC/GM SYR EACH NARE SCH (15:00)
[2017-07-27] MEDS ORDERED: APIX5TAB PO (15:10)
[2017-07-27] MEDS ORDERED: DILT60TA33 PO (15:10)
[2017-07-27] MEDS ORDERED: ECASA81 PO (15:12)
[2017-07-27 15:47] LABS: BICARBONATE 27.5 MEQ/L (21.0-32.0); CALCIUM 8.8 MG/DL (8.5-10.1); CREATININE 0.68 MG/DL (0.50-1.00)
--- NOTE | 2017-07-27 15:47 | PD.CARD.PN ---
Subjective Subjective Remarks Pt feels well, wants to go home, in NSR Objective Medications Current Medications Medications (Trade) Dose Ordered Sig/Addi Route Start Time Stop Time Status Last Admin Diltiazem HCl 125 mg/Sodium Chloride 125 ml @ 5 mls/hr TITRATE PRN IV 07/25/17 21:30 07/26/17 09:12 (NS Flush) 2 ml UNSCH PRN IV FLUSH 07/25/17 21:45 Sodium Chloride 1,000 ml @ 100 mls/hr Q10H IV 07/25/17 22:57 07/27/17 04:00 (NS Flush) 2 ml UNSCH PRN IV FLUSH 07/25/17 23:00 (NS Flush) 2 ml BID IV FLUSH 07/26/17 09:00 07/27/17 09:35 (Zofran Inj) 4 mg Q6H PRN IVP 07/25/17 23:00 (Tylenol) 650 mg Q6H PRN PO 07/25/17 23:00 (Morphine Inj) 1 mg Q3H PRN IV PUSH 07/25/17 23:00 (Morphine Inj) 2 mg Q3H PRN IV PUSH 07/25/17 23:00 07/26/17 09:22 (Liz-Colace) 1 tab BID PO 07/26/17 09:00 07/27/17 09:35 (Milk Of Magnesia Liq) 30 ml Q12H PRN PO 07/25/17 23:00 (Senokot) 17.2 mg Q12H PRN PO 07/25/17 23:00 07/27/17 09:51 (Dulcolax Supp) 10 mg DAILY PRN RECTAL 07/25/17 23:00 (Lactulose Liq) 30 ml DAILY PRN PO 07/25/17 23:00 (Ecotrin Ec) 81 mg DAILY PO 07/26/17 09:00 07/27/17 09:35 (Flexeril) 10 mg TID PO 07/26/17 09:00 07/27/17 12:47 (Toprol Xl) 50 mg BID PO 07/26/17 09:00 07/26/17 21:44 (Protonix) 40 mg DAILY PO 07/26/17 09:00 07/27/17 09:35 Miscellaneous Information Patient in critical care unit? Ass... Q361D .XX 07/26/17 04:00 07/26/17 04:00 (Chlorhexidine 2% Cloth) 3 pack DAILY@04 TOPICAL 07/26/17 04:00 07/30/17 04:01 07/27/17 04:00 (Chlorhexidine 2% Cloth) 3 pack UNSCH PRN TOPICAL 07/26/17 04:00 07/31/17 03:55 (Cardizem) 60 mg QID PO 07/26/17 13:00 07/27/17 12:48 (Eliquis) 5 mg BID PO 07/26/17 21:00 07/27/17 09:36 (Proair Hfa Inh) 2 puff Q6HR INH 07/26/17 18:00 07/27/17 12:47 (Lipitor) 40 mg HS PO 07/26/17 21:00 07/26/17 21:44 (Bactroban Nasal 2% Oint) 1 applic BID EACH NARE 07/27/17 15:00 Vital Signs / I&O Vital Signs Date Time Temp Pulse Resp B/P (MAP) Pulse Ox O2 Delivery O2 Flow Rate FiO2 07/27/17 15:17 98.2 62 18 149/73 (98) 99 07/27/17 15:17 57 07/27/17 12:00 97.7 65 24 167/79 (108) 94 07/27/17 12:00 65 07/27/17 10:00 65 07/27/17 08:00 53 07/27/17 08:00 97.5 53 16 171/78 (109) 07/27/17 06:00 59 07/27/17 04:00 56 07/27/17 04:00 97.6 56 24 140/70 (93) 93 07/27/17 02:00 53 07/27/17 00:00 50 07/27/17 00:00 97.9 50 16 113/54 (73) 07/26/17 22:00 56 07/26/17 20:00 97.7 49 16 103/55 (71) 95 07/26/17 20:00 49 07/26/17 18:00 47 07/26/17 18:00 97.5 47 16 114/55 (74) 07/26/17 16:00 74 I/O 07/26/17 07/26/17 07/26/17 07/27/17 07/27/17 07/27/17 07:00 15:00 23:00 07:00 15:00 23:00 Intake Total 150 ml 600 ml 1240 ml 300 ml Output Total 350 ml 500 ml 650 ml 550 ml Balance -200 ml 100 ml 590 ml -250 ml Intake Oral 150 ml 600 ml 100 ml 300 ml IV Total 1140 ml Output Urine Total 350 ml 500 ml 650 ml 550 ml # Bowel Movements 0 Physical Exam Administered Medications Medications (Trade) Dose Ordered Sig/Addi Route PRN Reason Start Time Stop Time Status Last Admin Dose Admin Diltiazem HCl 125 mg/Sodium Chloride 125 ml @ 5 mls/hr TITRATE PRN IV tachycardia 07/25/17 21:30 07/26/17 09:12 Sodium Chloride 1,000 ml @ 100 mls/hr Q10H IV 07/25/17 22:57 07/27/17 04:00 Sodium Chloride (NS Flush) 2 ml BID IV FLUSH 07/26/17 09:00 07/27/17 09:35 Morphine Sulfate (Morphine Inj) 2 mg Q3H PRN IV PUSH Pain 6-10 07/25/17 23:00 07/26/17 09:22 Senna/Docusate Sodium (Liz-Colace) 1 tab BID PO 07/26/17 09:00 07/27/17 09:35 Sennosides (Senokot) 17.2 mg Q12H PRN PO Moderate constipation 07/25/17 23:00 07/27/17 09:51 Aspirin (Ecotrin Ec) 81 mg DAILY PO 07/26/17 09:00 07/27/17 09:35 Cyclobenzaprine HCl (Flexeril) 10 mg TID PO 07/26/17 09:00 07/27/17 12:47 Metoprolol Succinate (Toprol Xl) 50 mg BID PO 07/26/17 09:00 07/26/17 21:44 Pantoprazole Sodium (Protonix) 40 mg DAILY PO 07/26/17 09:00 07/27/17 09:35 Miscellaneous Information Patient in critical care unit? Ass... Q361D .XX 07/26/17 04:00 07/26/17 04:00 Chlorhexidine Gluconate (Chlorhexidine 2% Cloth) 3 pack DAILY@04 TOPICAL 07/26/17 04:00 07/30/17 04:01 07/27/17 04:00 Diltiazem HCl (Cardizem) 60 mg QID PO 07/26/17 13:00 07/27/17 12:48 Apixaban (Eliquis) 5 mg BID PO 07/26/17 21:00 07/27/17 09:36 Albuterol Sulfate (Proair Hfa Inh) 2 puff Q6HR INH 07/26/17 18:00 07/27/17 12:47 Atorvastatin Calcium (Lipitor) 40 mg HS PO 07/26/17 21:00 07/26/17 21:44 Laboratory Laboratory Tests Test 07/27/17 15:09 Imaging Last [address] 07/27/17 0005 Signed Impressions: Service Date/Time: Thursday, July 27, 2017 00:23 - CONCLUSION: No acute complication demonstrated post aneurysm coiling. No perceptible hemorrhage. Mild chronic white matter changes. Kenneth Pearce MD Neck CTA 07/27/17 0000 Signed Impressions: Service Date/Time: Thursday, July 27, 2017 00:25 - CONCLUSION: Right greater than left carotid bifurcation atherosclerotic plaque with approximately 50%% narrowing of the right proximal ICA and 30%% narrowing of the proximal left ICA. Also some mild narrowing of the right common carotid artery. No hemodynamically significant stenosis is demonstrated. Kenneth Pearce MD Head CTA 07/27/17 0000 Signed Impressions: Service Date/Time: Thursday, July 27, 2017 00:25 - CONCLUSION: 1. Aneurysm coiling in the region of the basilar tip without a definite residual aneurysm. No additional aneurysms are demonstrated. 2. Mild spasm and/or intracranial atherosclerotic disease involving the anterior cerebral arteries. No high- grade narrowing seen of the intracranial arteries. Kenneth Pearce MD Assessment and Plan Problem List: (1) Atrial fibrillation with RVR ICD Codes: I48.91 - Unspecified atrial fibrillation Status: Acute Plan: In nsr, changed dilt to long acting; metoprolol d/c'd due to bradycardia , on eliquis (2) Chest pain ICD Codes: R07.9 - Chest pain, unspecified Plan: no ischemia by nuc stress (3) Tobacco abuse ICD Codes: Z72.0 - Tobacco use Plan: counseled against at length Assessment and Plan Ok to d/c from cardiac standpoint. Ag Lopez MD Jul 27, 2017 15:47
[2017-07-27] MEDS ORDERED: DILT240C44 PO (15:48)
--- NOTE | 2017-07-27 16:20 | HHI.DS ---
Discharge Summary Admission Date Jul 25, 2017 at 22:53 Discharge Date: Jul 27, 2017 Admitting Diagnosis A. fib with RVR (1) Atrial fibrillation with RVR ICD Code: I48.91 - Unspecified atrial fibrillation Diagnosis: Principal Status: Acute (2) Chest pain ICD Code: R07.9 - Chest pain, unspecified Diagnosis: Secondary (3) Leukocytosis ICD Code: D72.829 - Elevated white blood cell count, unspecified Diagnosis: Secondary (4) DM (diabetes mellitus) ICD Code: E11.9 - Type 2 diabetes mellitus without complications Diagnosis: Secondary (5) Tobacco abuse ICD Code: Z72.0 - Tobacco use Diagnosis: Secondary Procedures none Brief History - From Admission This is a 56-year-old female with a PMH of HTN, CAD, CVA, COPD, DM, Intracranial Aneurysm s/p Coil x2, Stent x1, A. fib and Tobacco Abuse who was brought to the ER by EMS secondary to complaints of chest pain and palpitations starting earlier tonight. States chest pain is substernal, constant, 8-9/10, non-radiating, worse w/ deep breath/palpitations. Pt found to be in A-fib w/ RVR by EMS, HR 140's, s/p Cardizem w/ HR 80's. Reports previous h/o of A. fib however "not taking anything", does not follow w/ Cardiology. On arrival, BP 127/59, HR 140, O2 sat 97% on RA, Afebrile. WBC 11.1. Chemistry unremarkable was of her GFR 69. BS 226. Troponin negative. INR 1.0. CXR with no acute findings, possible bony injury to lateral left seventh and eighth ribs. Denies trauma. S/p additional Cardizem IV in ER, currently on Cardizem gtt. CBC/BMP: 07/26/17 0236 07/27/17 1509 Significant Findings Laboratory Tests Test 07/25/17 21:35 07/26/17 02:36 07/26/17 03:45 07/26/17 11:03 White Blood Count 11.1 TH/MM3 (4.0-11.0) Activated Partial Thromboplast Time 24.0 SEC (24.3-30.1) Random Glucose 226 MG/DL (74-106) 111 MG/DL (74-106) Sodium Level 135 MEQ/L (136-145) Estimat Glomerular Filtration Rate 69 ML/MIN (>89) Troponin I LESS THAN 0.02 NG/ML LESS THAN 0.02 NG/ML LESS THAN 0.02 NG/ML B-Type Natriuretic Peptide 111 PG/ML (0-100) Lymphocytes (%) (Auto) 48.3 % (9.0-44.0) Hemoglobin A1c 6.8 % (4.3-6.0) Test 07/27/17 15:09 Random Glucose 139 MG/DL (74-106) Imaging Last Impressions Head CT 07/27/17 0005 Signed Impressions: Service Date/Time: Thursday, July 27, 2017 00:23 - CONCLUSION: No acute complication demonstrated post aneurysm coiling. No perceptible hemorrhage. Mild chronic white matter changes. Kenneth Peacre MD Neck CTA 07/27/17 0000 Signed Impressions: Service Date/Time: Thursday, July 27, 2017 00:25 - CONCLUSION: Right greater than left carotid bifurcation atherosclerotic plaque with approximately 50%% narrowing of the right proximal ICA and 30%% narrowing of the proximal left ICA. Also some mild narrowing of the right common carotid artery. No hemodynamically significant stenosis is demonstrated. Kenneth Pearce MD Head CTA 07/27/17 0000 Signed Impressions: Service Date/Time: Thursday, July 27, 2017 00:25 - CONCLUSION: 1. Aneurysm coiling in the region of the basilar tip without a definite residual aneurysm. No additional aneurysms are demonstrated. 2. Mild spasm and/or intracranial atherosclerotic disease involving the anterior cerebral arteries. No high- grade narrowing seen of the intracranial arteries. Kenneth Pearce MD Myocardial Perfusion Scan Nuc Med 07/26/17 0000 Signed Impressions: Service Date/Time: Wednesday, July 26, 2017 14:33 - CONCLUSION: 1. No significant reversibility to suggest ischemia. There is some increased gastric activity which does obscure the findings. 2. Ejection fraction is within normal limits at 52%%. RISK CATEGORY: Low (<1%% Annual Mortality Rate) [place] De Jesus MD Chest X-Ray 07/25/[id number] Signed Impressions: Service Date/Time: Tuesday, July 25, 2017 21:30 - CONCLUSION: The lungs are clear. Possible bony injury to the lateral left 7th and 8th ribs. Mauro King MD PE at Discharge awake and alert, oriented x 3 anicteric no nuchal rigidity lungs- no rales, no wheezes regular rhythm abdomen soft, nontender extremities no edema neuro exam- unremarkable Pt update on day of discharge afebrile- in SR good readings Hospital Course 56 years old female Paroxysmal A. fib w/ RVR: h/o A-fib, - now In SR- oernight some cristino- History of CAD. denies any hsitory of CVA H/o Aneurysm s/p Coil/Stent, negative myocardial perfusion study controlled on Cardizem 60 mg continue on Metoprolol bid . statis, ASA. Eliquis bid Dr. Lopez ff good BPs Leukocytosis: WBC 11. Afebrile. CXR w/ no acute findings, DM: Hold Metformin for now x 48 hours- post CTA. Sliding scale w/ Accu-Cheks. COPD. still continues to smoke- counselled again extensively restart her inhalers history y fo GERD. continue PPI History of cerebral aneurysm S/P coiling. 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 DC today CM to assist with meds and DC ff up- needs a PCP- medicaid Pt Condition on Discharge: Good Discharge Disposition: Discharge Home Discharge Time: <= 30 minutes Discharge Instructions DIET: Follow Instructions for: Heart Healthy Diet, Diabetic Diet Speech Therapy-Diet Recommends: Regular Activities you can perform: Weight Bearing as Rebeca Activities to Avoid: Strenuous Activity Follow up Referrals: Cardiology - 10 Days with Ag Lopez MD PCP Follow-up New Medications: Apixaban (Eliquis) 5 Mg Tab 5 MG PO BID for afib parox for 30 Days, #60 TAB 3 Refills Diltiazem CD 24 HR (Diltiazem CD 24 HR) 240 Mg Caper 240 MG PO DAILY for a fib for 30 Days, #30 CAP Continued Medications: Albuterol 8.5 GM Inh (Proair Hfa 8.5 GM Inh) 90 Mcg/Act Aer 2 PUFF INH Q4-6H PRN for SHORTNESS OF BREATH, #1 INHALER 0 Refills 108 mcg/actuation Atorvastatin (Atorvastatin) 40 Mg Tab 40 MG PO HS for Cholesterol Management, #30 TAB 0 Refills Cyclobenzaprine (Flexeril) 10 Mg Tab 10 MG PO TID for Muscle Spasm, #90 TAB 0 Refills Metoprolol Succinate ER 24 HR (Metoprolol Succinate ER 24 HR) 50 Mg Tab 50 MG PO BID, #30 TAB 0 Refills Discontinued Medications: Aspirin (Aspirin) 325 Mg Tab 325 MG PO DAILY, #30 TAB 0 Refills Oneyda Chaudhry MD Jul 27, 2017 16:20
--- NOTE | 2017-07-27 16:42 | ECHRPT ---
Indication: ATRIAL FIB CONCLUSIONS The left ventricular systolic function is normal with an estimated ejection fraction in the range of 60-65%. Normal left ventricular size. Wall thickness is normal. No regional wall motion abnormalities are present. Trace mitral valve regurgitation. Mitral annular calcification is present. Aortic valve sclerosis is present. Moderate aortic valve regurgitation. There is trace tricuspid valve regurgitation. The estimated pulmonary arterial pressure is 41.6 mmHg. BP: 140 / 70 HR: 93 Rhythm: Sinus MEASUREMENTS (Male / Female) Normal Values Technical Quality:Fair 2D ECHO LV Diastolic Diameter PLAX 4.7 cm 4.2 - 5.9 / 3.9 - 5.3 cm LV Systolic Diameter PLAX 3.1 cm IVS Diastolic Thickness 1.0 cm 0.6 - 1.0 / 0.6 - 0.9 cm LVPW Diastolic Thickness 1.0 cm 0.6 - 1.0 / 0.6 - 0.9 cm LV Relative Wall Thickness 0.4 LVOT Diameter 2.5 cm LA Systolic Diameter LX 3.3 cm 3.0 - 4.0 / 2.7 - 3.8 cm LV Ejection Fraction MOD 4C 61.1 % LV Cardiac Index MOD 4C 3180.5 cm/minm LV Ejection Fraction 4C AL 62.2 % LV Cardiac Index 4C AL 3391.5 cm/minm M-MODE Aortic Root Diameter MM 2.9 cm LA Systolic Diameter MM 3.5 cm LA Ao Ratio MM 1.2 AV Cusp Separation MM 2.0 cm DOPPLER AV Peak Velocity 187.0 cm/s AV Peak Gradient 14.0 mmHg AI Peak Velocity 351.5 cm/s AI Peak Gradient 49.4 mmHg AI Pressure Half Time 406.5 ms LVOT Peak Velocity 75.0 cm/s LVOT Peak Gradient 2.3 mmHg AV Area Cont Eq pk 1.9 cm MV Area PHT 2.4 cm Mitral E Point Velocity 72.6 cm/s Mitral A Point Velocity 65.6 cm/s Mitral E to A Ratio 1.1 LV E' Lateral Velocity 8.1 cm/s Mitral E to LV E' Lateral Ratio 9.0 LV E' Septal Velocity 9.1 cm/s Mitral E to LV E' Septal Ratio 8.0 TR Peak Velocity 281.0 cm/s TR Peak Gradient 31.6 mmHg Right Atrial Pressure 10.0 mmHg Pulmonary Artery Systolic Pressu 41.6 mmHg Right Ventricular Systolic Press 41.6 mmHg PV Peak Velocity 92.3 cm/s PV Peak Gradient 3.4 mmHg FINDINGS LEFT VENTRICLE The left ventricular systolic function is normal with an estimated ejection fraction in the range of 60-65%. Normal left ventricular size. Wall thickness is normal. No regional wall motion abnormalities are present. RIGHT VENTRICLE Normal right ventricular size and systolic function. LEFT ATRIUM The left atrial size is normal. RIGHT ATRIUM The right atrial size is normal. ATRIAL SEPTUM Normal atrial septal thickness without atrial level shunting by limited color doppler interrogation. AORTA The aortic root and proximal ascending aorta are normal in size on limited imaging. MITRAL VALVE Structurally normal mitral valve. Trace mitral valve regurgitation. Mitral annular calcification is present. AORTIC VALVE Trileaflet aortic valve. Aortic valve sclerosis is present. Moderate aortic valve regurgitation. TRICUSPID VALVE Structurally normal tricuspid valve. There is trace tricuspid valve regurgitation. The estimated pulmonary arterial pressure is 41.6 mmHg. PULMONARY VALVE No pulmonary valve regurgitation or stenosis. VESSELS The inferior vena cava is normal in size. PERICARDIUM No pericardial effusion. Ag Lopez MD (Electronically Signed) Final Date:27 July 2017 16:41
[2017-07-28] MEDS ORDERED: DILTIAZEM-CD 240 MG CAP ER PO SCH (09:00)
== END 2017-07-27 16:56 | disposition home or self-care (01) | DRG 310 ==
LOC: NEPE 21:09 → NEDA 22:53 → HIMN 07-26 03:42 → HCIS 07-27 14:30
PROVIDERS: ADMIT Internal Medicine; ATTEND Internal Medicine
DX: I48.0 Paroxysmal atrial fibrillation (principal); I10 Essential (primary) hypertension; J44.9 Chronic obstructive pulmonary disease, unspecified; E11.9 Type 2 diabetes mellitus without complications; D72.829 Elevated white blood cell count, unspecified; E78.5 Hyperlipidemia, unspecified; K21.9 Gastro-esophageal reflux disease without esophagitis; I25.2 Old myocardial infarction; R00.1 Bradycardia, unspecified; I25.10 Atherosclerotic heart disease of native coronary artery without angina pectoris; F17.200 Nicotine dependence, unspecified, uncomplicated; Z22.322 Carrier or suspected carrier of Methicillin resistant Staphylococcus aureus; Z79.84 Long term (current) use of oral hypoglycemic drugs; Z86.73 Personal history of transient ischemic attack (TIA), and cerebral infarction without residual deficits; Z88.0 Allergy status to penicillin; Z88.2 Allergy status to sulfonamides; Z88.5 Allergy status to narcotic agent
CPT/HCPCS: 70450; 70496; 70498; 71045; 78452; 80048; 80053; 80061; 82550; 83036; 83735; 83880; 84443; 84484; 85025; 85610; 85730; 87641; 93005; 93017; 93306; 96365; 96375; A9502; J2270; J2785; J7030; Q9967